=== PATIENT | male | born 1990 | race Caucasian/White ===

== ENCOUNTER 2022-06-09 05:42 | Day surgery (SDC) | payer MEDICAID ==
[~2022-06-09] VITALS: Ht 162.6 cm; Wt 59.1 kg
[2022-06-09] MEDS ORDERED: PROPOFOL 1% 20 ML VIAL IVP ONE (05:43)
[2022-06-09] MEDS ORDERED: MIDAZOLAM HCL 2 MG/2 ML VIAL IVP ONE (05:43)
[2022-06-09] MEDS ORDERED: FentaNYL CITRATE PF 100 MCG/2 ML VIAL IVP ONE (05:43)
[2022-06-09] MEDS ORDERED: SODIUM CHLORIDE 0.9% 1,000 ML IV ONE (06:00)
== END 2022-06-09 09:35 | disposition home or self-care (01) ==
LOC: SURGERY 05:42
PROVIDERS: ATTEND Surgery
DX: S36.60XA Unspecified injury of rectum, initial encounter (principal); K63.3 Ulcer of intestine; Z93.3 Colostomy status; X58.XXXA Exposure to other specified factors, initial encounter; Y92.89 Other specified places as the place of occurrence of the external cause; Y93.89 Activity, other specified; Y99.8 Other external cause status
CPT/HCPCS: 45330; J2704; J3010; J2250